=== PATIENT | female | born 1975 | race Caucasian/White ===

== ENCOUNTER 2020-05-06 11:39 | Outpatient (REF) | payer BC, SELFPAY | END 2020-05-06 11:40 | disposition home or self-care (01) | LOC: HO.WFDLDS 11:39 | PROVIDERS: Visit Provider Internal Medicine | DX: Z20.828 Contact with and (suspected) exposure to other viral communicable diseases (principal) | CPT/HCPCS: C9803; U0003 ==

== ENCOUNTER 2024-12-18 14:52 | Outpatient (REF) | payer BC, SELFPAY ==
--- OUTSIDE RECORDS SUMMARY | 2024-12-18 15:48 | XMS_ITS ---
Author Name [facility] Organization Unknown Care Team Organization Name Specialty Phone Email Start Date End [facility] 06/04/2021 06/04/2021
== END 2024-12-18 14:53 | disposition home or self-care (01) ==
LOC: HO.LAB 14:52
PROVIDERS: Visit Provider Otolaryngology
DX: T78.2XXA Anaphylactic shock, unspecified, initial encounter (principal)
CPT/HCPCS: 36415; 86003

== ENCOUNTER 2025-02-27 15:30 | Outpatient (AMB) | payer BC, SELFPAY ==
--- OUTSIDE RECORDS SUMMARY | 2025-02-27 18:24 | XMS_ITS | Clinical Summary ---
Author Organization [facility] Address [address] [place] [address] Phone Care Team Providers Care Soda Drier Feeder Name Role Phone Laura Rhoades MD Primary Care Provider [phone] Allergies No known active allergies Medications Tana, 28, 3-0.02 mg per tablet Take 1 tablet by mouth 1 (one) time each day. 5 Active ferrous sulfate 325 mg (65 mg elemental iron) tablet Take by mouth. Active semaglutide (Wegovy) 0.25 mg/0.5 mL injection penIndications: Overweight (BMI 25.0-29.9),Prim piotr hypertension,PC OS (polycystic ovarian syndrome) Inject 0.25 mg under the skin every 7 (seven) days. 4 Pen 5 Active lisinopriL (PRINIVIL,ZESTR IL) 5 mg tablet Take 1 tablet by mouth once daily 90 tablet 1 5 Active omeprazole OTC (PriLOSEC OTC) 20 mg EC tablet Take 1 tablet (20 mg total) by mouth 1 (one) time each day. Do not crush, chew, or split. 30 tablet 5 Active lisinopriL (PRINIVIL,ZESTR IL) 5 mg tablet Take 1 tablet by mouth once daily 90 tablet 5 02/02/20 25 Discontinued Active Problems Problem Noted Date Diagnosed Date HTN (hypertension) 06/14/2024 Abnormal CXR 04/18/2020 Uterine leiomyoma 10/31/2015 Renal cyst, left 10/30/2015 Abnormal mammogram 01/05/2013 Bifascicular block 01/03/2013 Dizziness 01/03/2013 Numbness and tingling of both legs 01/03/2013 PCOS (polycystic ovarian syndrome) 09/28/2010 Encounters Date Type Department Care Team Description 02/08/2025 11:00 AM EDT Office Visit Adult [address] [phone] Faye Mathias PA Gastroesophageal reflux disease without esophagitis (Primary Dx); Primary hypertension; Overweight (BMI 25.0-29.9) 01/23/2025 3:50 PM EDT - 01/23/2025 11:59 PM EDT Hospital Encounter Radiology Department - [address] [phone] Encounter for screening mammogram for breast cancer Discharge Disposition: Home or Self Care 01/22/2025 Telephone Adult [address] [phone] Laura Rhoades MD 01/10/2025 Telephone Adult [address] [phone] Laura Rhoades MD 01/03/2025 4:00 PM EDT Office Visit Adult [address] [phone] Faye Mathias PA Adult general medical examination (Primary Dx); Primary hypertension; Mixed hyperlipidemia; Screening for diabetes mellitus; Screening for thyroid disorder; Overweight (BMI 25.0-29.9); PCOS (polycystic ovarian syndrome) 12/13/2024 9:45 AM EDT Office Visit Adult [address] [phone] Ronda Gordon PA Facial rash (Primary Dx); Skin lesion; Screening for cervical cancer 12/12/2024 Telephone Adult [address] [phone] Kassandra Simon MA from Last 3 Months Immunizations Name Administration Dates Next Due Influenza Quadravalent, MDCK , 0.5ml, preservative free (Flucelvax) 6mo and older 05/14/2023,03/29/2022,03/03/2021,2019 Influenza trivalent, with preservative (Fluzone; Afluria) 6mo and older 03/19/2009 PPD Test 01/27/2001,01/24/2001 Td Tetanus diptheria (Tdvax) 7yo and older 03/03/2021 Tdap Tetanus diptheria acell ular pertussis (Boostrix; Adacel) 7yo and older 09/28/2010 Surgical History Surgery Date Site/Laterality Comments APPENDECTOMY PROCEDURE: HISTORICAL APPENDECTOMY; COMMENT: age 8 HAND SURGERY PROCEDURE: HISTORICAL HAND SURGERY; COMMENT: left thumb BELT ABDOMINOPLASTY PROCEDURE: HISTORICAL TUMMY TUCK; COMMENT: after twin OTHER SURGICAL HISTORY PROCEDURE: ---- OTHER ----; COMMENT: bladder stretching procedure for IC, doing well OTHER SURGICAL HISTORY 12/25/2019 PROCEDURE: MO UNLISTED HYSTEROSCOPY PROCEDURE UTERUS; COMMENT: w/ polypectomy for menorrhagia; Dr. Hampton ENDOMETRIAL ABLATION 08/12/2020 PROCEDURE: MO ENDOMETRIAL ABLTJ THERMAL W/O HYSTEROSCOPIC GUID; COMMENT: Dr. Hampton BREAST BIOPSY Left PROCEDURE: BX BREAST; PERC NEEDLE CORE W/IMAG GUID Medical History Medical History Date Comments Female infertility of unspec ified origin DX:Female infertility of uns pecified origin Other specified types of cystitis(595.89) DX:Other specified types of cystitis(595.89); COMMENT: interstitial Family history of cardiovasc ular disease 09/28/2010 DX:Family history of cardiov ascular disease PCOS (polycystic ovarian syndrome) 06/20/1998 DX:PCOS (polycystic ovarian syndrome) HTN (hypertension) DX:HTN (hyper tension) Family History Medical History Relation Name Comments Other: htn Father Lung cancer Paternal Grandmother smoker Other cancer Paternal Grandmother SKIN CA Other: htn Paternal Grandmother Relation Name Status Comments Brother Alive healthy Daughter Alive healthy Father Alive CAD/PTCA AGE 47 , GERD, HTN, CHOL, OBESE, Maternal Grandfather (Age 20s) c ancer-asbestos Maternal Grandmother Alive healthy Mother Alive BENIGN BREAST B X Paternal Grandfather (Age 77) pr ostate cancer Paternal Grandmother (Age 77) de mentia, skin cancer and lung cancer Sister Alive 1/2 sister Son 1 Alive healthy - twin Son 2 Alive healthy -twin Social History Tobacco Use Types Packs/Day Years Used Date Smoking Tobacco: Never Smokeless Tobacco: Never Tobacco Cessation:Counseling Given: Not Answered Alcohol Use Standard Drinks/Week Comments Yes 0 (1 standard drink = 0.6 oz pur e alcohol) Interpersonal Safety Answer Date Record ed Physical Abuse 06/08/2024 Verbal Abuse 06/08/2024 Comments No Sex and Gender Information Value Date Recorded Sex Assigned at Not on file Legal Sex Female 9:19 PM EST Gender Identity Not on file Sexual Orientation Not on file Obstetrics History Para Term AB IAB SAB Ectopic Multiple Livin g Live Births 3 3 3 3 Date Outcome GA Total Labor Labor/2nd/3rd Weight Sex Type Anes PTL Amy A1 A5 Name Clin Term Term Term Last Filed Vital Signs Vital Sign Reading Time Taken Comments Blood Pressure 132/82 02/08/2025 10:51 AM EDT Pulse 81 02/08/2025 10:51 AM EDT Temperature 36.6 C (97.8 F) 02/08/2025 10:51 AM EDT Respiratory Rate 16 02/08/2025 10:51 AM EDT Oxygen Saturation 99% 06/08/2024 9:13 AM EST Inhaled Oxygen Concentration - - Weight 67.6 kg (149 lb) 02/08/2025 10:51 AM EDT Height 157.5 cm (5' 2 ) 02/08/2025 10:51 AM EDT Body Mass Index 27.25 02/08/2025 10:51 AM EDT Plan of Treatment Health Maintenance Due Date Last Done Comments Hepatitis B Vaccines (1 of 3 - 19+ 3-dose series) 1992 HIV Screening 05/29/2022 Social Influencers of Health Screening 05/29/2022 Pneumococcal Vaccine: 50+ Years (1 of 1 - PCV) 09/09/2023 Zoster Vaccines (1 of 2) 09/09/2023 Depression Screening 06/20/2024 COVID-19 Vaccine ( - 2024- season) 2025 06/15/2021, 08/01/2020, 07/02/2020 Influenza Vaccine (#1) 2025 3, 03/29/2022, 03/03/2021, Additional history exists Hypertension/CHF/CAD Annual BMP Blood Test 01/04/2026 01/04/2025, 01/03/2024, 01/03/2024 Breast Cancer Screening 01/23/2027 01/24/20, 01/21/2024, 01/21/2024, Additional history exists Cervical Cancer Screening: HPV 12/31/2027 12/30/2022 Cholesterol Screening (Lipid Panel) 01/02/2029 01/03/2024, 01/03/2024 DTaP,Tdap,and Td Vaccines (3 - Td or Tdap) 03/03/2031 03/03/2021, 09/28/2010 Colorectal Cancer Screening: Colonoscopy 06/08/2034 06/08/2024 Hepatitis C Screening Completed 01/03/2024 HIB Vaccines Aged Out No longer eligi ble based on patient's age to complete this topic HPV Vaccines Aged Out No longer eligi ble based on patient's age to complete this topic Hepatitis A Vaccines Aged Out No long er eligible based on patient's age to complete this topic IPV Vaccines Aged Out No longer eligi ble based on patient's age to complete this topic MMR Vaccines Aged Out No longer eligi ble based on patient's age to complete this topic Meningococcal ACWY Vaccine Aged Out N o longer eligible based on patient's age to complete this topic Meningococcal B Vaccine Aged Out No l onger eligible based on patient's age to complete this topic RSV Immunization Patients Under 20 months Aged Out No longer eligible based on patient's age to complete this topic Varicella Vaccines Aged Out No longer eligible based on patient's age to complete this topic Procedures Procedure Name Priority Date/Time Associated Diagnosis Comments MG MAMMO DIGITAL SCREENING W BRYSON BILAT Routine 01/23/2025 4:07 PM EDT Encounter for screening mammogram for breast cancer CBC WITH AUTO DIFFERENTIAL Routine 01/04/2025 10:43 AM EDT Adult general medical examination Primary hypertension Mixed hyperlipidemia Screening for diabetes mellitus Screening for thyroid disorder HEMOGLOBIN A1C Routine 01/04/2025 10:43 AM EDT Adult general medical examination Primary hypertension Mixed hyperlipidemia Screening for diabetes mellitus Screening for thyroid disorder CBC AND DIFFERENTIAL Routine 01/04/2025 10:43 AM EDT Adult general medical examination Primary hypertension Mixed hyperlipidemia Screening for diabetes mellitus Screening for thyroid disorder COMPREHENSIVE METABOLIC PANEL Routine 01/04/2025 10:43 AM EDT Adult general medical examination Primary hypertension Mixed hyperlipidemia Screening for diabetes mellitus Screening for thyroid disorder THYROID STIMULATING HORMONE WITH REFLEX TO FREE T4 AND FREE T3 Routine 01/04/2025 10:43 AM EDT Adult general medical examination Primary hypertension Mixed hyperlipidemia Screening for diabetes mellitus Screening for thyroid disorder VITAMIN D 25 HYDROXY Routine 01/04/2025 10:43 AM EDT Adult general medical examination Primary hypertension Mixed hyperlipidemia Screening for diabetes mellitus Screening for thyroid disorder VITAMIN B12 Routine 01/04/2025 10:43 AM EDT Adult general medical examination Primary hypertension Mixed hyperlipidemia Screening for diabetes mellitus Screening for thyroid disorder MAGNESIUM Routine 01/04/2025 10:43 AM EDT Adult general medical examination Primary hypertension Mixed hyperlipidemia Screening for diabetes mellitus Screening for thyroid disorder COLONOSCOPY Routine 06/08/2024 8:52 AM EST Encounter for screening for malignant neoplasm of colon HM HEPATITIS C SCREENING Routine 01/03/2024 LIPID PANEL Routine 01/03/2024 HM HPV Routine 12/30/2022 from Last 3 Months or Most Recently Relevant to Health Maintenance Results * MG Mammo Digital Screening w Bryson bilat (01/23/2025 4:07 PM EDT) Anatomical Region Laterality Modality Breast Bilateral Mammography 01/24/2025 6:36 PM EDT Impressions 01/24/2025 6:38 PM EDT No mammographic evidence of malignancy. BREAST DENSITY: C - The breasts are heterogeneously dense which may obscure small masses. BI-RADS CATEGORY: 1 - NEGATIVE RECOMMENDATION: Screening bilateral mammogram is recommended in 1 year. MAMMO LOCATION: [facility], [address] [place] [address], [id number], . -------- FINAL REPORT -------- Dictated By: Tanna Valdez Dictated Date: 01/24/2025 18:36 ET Assigned Physician: Tanna Valdez Reviewed and Electronically Signed By: Tanna Valdez Signed Date: 01/24/2025 18:38 ET Workstation ID: [id number] Transcribed By: Self Edit Transcribed Date: 01/24/2025 18:36 ET Narrative 01/24/2025 6:38 PM EDT EXAM: Screening Mammogram CLINICAL: 49 years old, Female, routine annual exam. COMPARISON: 01/21/2024 and as far back as 10/17/2020 TECHNIQUE: Bilateral MLO and CC views were obtained digitally with 3-D mammogram (digital breast tomosynthesis). Computer-aided detection was utilized in evaluation of this exam (CAD). FINDINGS: No new suspicious mass, architectural distortion, or suspicious calcifications. Procedure Note Tanna Valdez MD - 01/24/2025 EXAM: Screening Mammogram CLINICAL: 49 years old, Female, routine annual exam. COMPARISON: 01/21/2024 and as far back as 10/17/2020 TECHNIQUE: Bilateral MLO and CC views were obtained digitally with 3-Dmammogram (digital breast tomosynthesis). Computer-aided detection wasutilized in evaluation of this exam (CAD). FINDINGS: No new suspicious mass, architectural distortion, or suspiciouscalcifications. IMPRESSION: No mammographic evidence of malignancy. BREAST DENSITY: C - The breasts are heterogeneously dense which mayobscure small masses. BI-RADS CATEGORY: 1 - NEGATIVE RECOMMENDATION: Screening bilateral mammogram is recommended in 1 year. MAMMO LOCATION: [facility], [address] [place] [address], [id number], . -------- FINAL REPORT -------- Dictated By: Tanna Valdez Dictated Date: 01/24/2025 18:36 ET Assigned Physician: Tanna Valdez Reviewed and Electronically Signed By: Tanna Valdez Signed Date: 01/24/2025 18:38 ET Workstation ID: [id number] Transcribed By: Self Edit Transcribed Date: 01/24/2025 18:36 ET us Laura Rhoades MD IMG BI PROCEDURES Final Result * Thyroid stimulating hormone with reflex to free t4 and free t3 (01/04/2025 10:43 AM EDT) Pathologist [facility] TSH 0.73 0.40 - 4.00 mcIU/mL LAB CHEMISTRY METHOD 01/04/2025 4:57 PM EDT [facility] Blood Venous blood specimen / Unknown Venipuncture / Unknown 01/04/2025 10:43 AM EDT 01/04/2025 10:43 AM EDT Faye SIMPSON LAB BLOOD ORDERABLES Fin al Result [facility] [address] [place] [address], * (ABNORMAL) CBC auto differential (01/04/2025 10:43 AM EDT) [facility] WBC 7.9 4.8 - 10.8 K/mcL LAB HEMETOLOGY METHOD 01/04/2025 12:17 PM EDT [facility] RBC 4.20 3.80 - 4.80 M/mcL LAB HEMETOLOGY METHOD 01/04/2025 12:17 PM EDT [facility] Hemoglobin 13.6 11.5 - 16.0 g/dL LAB HEMETOLOGY METHOD 01/04/2025 12:17 PM EDT [facility] Hematocrit 40.3 35.0 - 47.0 % LAB HEMETOLOGY METHOD 01/04/2025 12:17 PM EDT [facility] MCV 96.0 79.0 - 98.0 FL LAB HEMETOLOGY METHOD 01/04/2025 12:17 PM [facility] MCH 32.4(H) 27.0 - 32.0 pcg LAB HEMETOLOGY METHOD 01/04/2025 12:17 PM [facility] MCHC 33.7 32.0 - 37.0 g/dL LAB HEMETOLOGY METHOD 01/04/2025 12:17 PM [facility] RDW 12.6 11.0 - 15.0 % LAB HEMETOLOGY METHOD 01/04/2025 12:17 PM [facility] Platelets 234 130 - 400 K/mcL LAB HEMETOLOGY METHOD 01/04/2025 12:17 PM [facility] MPV 10.2 7.0 - 11.0 OR LAB HEMETOLOGY METHOD 01/04/2025 12:17 PM [facility] NRBC 0.0 <1.0 % LAB HEMETOLOGY METHOD 01/04/2025 12:17 PM [facility] NRBC Absolute 0.00 <0.10 K/mcL LAB HEMETOLOGY METHOD 01/04/2025 12:17 PM [facility] Neutrophils Relative 65.8 % LAB HEMETOLOGY METHOD 01/04/2025 12:17 PM [facility] Lymphocytes Relative 25.5 % LAB HEMETOLOGY METHOD 01/04/2025 12:17 PM [facility] Monocytes Relative 7.1 % LAB HEMETOLOGY METHOD 01/04/2025 12:17 PM [facility] Eosinophils Relative 0.8 % LAB HEMETOLOGY METHOD 01/04/2025 12:17 PM [facility] Basophils Relative 0.4 % LAB HEMETOLOGY METHOD 01/04/2025 12:17 PM [facility] Immature Granulocytes Relative 0.4 % LAB HEMETOLOGY METHOD 01/04/2025 12:17 PM EDT [facility] Neutrophils Absolute 5.23 1.50 - 7.00 K/mcL LAB HEMETOLOGY METHOD 01/04/2025 12:17 PM EDT [facility] Lymphocytes Absolute 2.02 1.00 - 5.00 K/mcL LAB HEMETOLOGY METHOD 01/04/2025 12:17 PM EDT [facility] Monocytes Absolute 0.56 0.20 - 1.00 K/mcL LAB HEMETOLOGY METHOD 01/04/2025 12:17 PM EDT [facility] Eosinophils Absolute 0.06 0.00 - 0.50 K/[facility] LAB HEMETOLOGY METHOD 01/04/2025 12:17 PM EDT [facility] Basophils Absolute 0.03 0.00 - 0.20 K/mcL LAB HEMETOLOGY METHOD 01/04/2025 12:17 PM EDT [facility] Immature Granulocytes Absolute 0.03 0.00 - 0.03 K/mcL LAB HEMETOLOGY METHOD 01/04/2025 12:17 PM EDT [facility] Blood Venous blood specimen / Unknown Venipuncture / Unknown 01/04/2025 10:43 AM EDT 01/04/2025 10:43 AM EDT Faye SIMPSON LAB BLOOD ORDERABLES Fin al Result [facility] [address] [place] [address], * Vitamin D 25 hydroxy (01/04/2025 10:43 AM EDT) [facility] Vit D, 25-Hydroxy 34.0 30.0 - 80.0 ng/mL LAB CHEMISTRY METHOD 01/04/2025 4:56 PM EDT [facility] Blood Venous blood specimen / Unknown Venipuncture / Unknown 01/04/2025 10:43 AM EDT 01/04/2025 10:43 AM EDT Faye Obando Bamame SIMPSON LAB BLOOD ORDERABLES Fin al Result [facility] [address] [place] [address], * Magnesium (01/04/2025 10:43 AM EDT) [facility] Magnesium 2.1 1.9 - 2.6 mg/dL LAB CHEMISTRY METHOD 01/04/2025 3:18 PM EDT [facility] Blood Venous blood specimen / Unknown Venipuncture / Unknown 01/04/2025 10:43 AM EDT 01/04/2025 10:43 AM EDT Faye Obando Natan SIMPSON LAB BLOOD ORDERABLES Fin al Result Performing Organization Address [facility]/ZIP Co de Phone Number [facility] [address] [place] [address], * Hemoglobin A1c (01/04/2025 10:43 AM EDT) [facility] Hemoglobin A1C 5.1 <6.5 % LAB CHEMISTRY METHOD 01/04/2025 10:51 PM EDT [facility] Mean Bld Glu Estim. 100 mg/dL LAB CHEMISTRY METHOD 01/04/2025 10:51 PM EDT [facility] Blood Venous blood specimen / Unknown Venipuncture / Unknown 01/04/2025 10:43 AM EDT 01/04/2025 10:43 AM EDT Faye Obando Bamame Mathias PA LAB BLOOD ORDERABLES Fin al Result Performing Organization Address City/[facility]/ZIP Co de Phone Number [facility] [address] [place] [address], [place] [phone] * Vitamin B12 (01/04/2025 10:43 AM EDT) [facility] Vitamin B-12 413 250 - 900 pcg/mL LAB CHEMISTRY METHOD 01/04/2025 3:55 PM EDT [facility] Blood Venous blood specimen / Unknown Venipuncture / Unknown 01/04/2025 10:43 AM EDT 01/04/2025 10:43 AM EDT us Faye SIMPSON LAB BLOOD ORDERABLES Fin al Result [facility] [address] [place] [address], [place] [phone] * Comprehensive metabolic panel (01/04/2025 10:43 AM EDT) [facility] Sodium 137 133 - 145 mmol/L LAB CHEMISTRY METHOD [facility]25 [facility] Potassium 4.2 3.5 - 5.5 mmol/L LAB CHEMISTRY METHOD 01/04/2025 3:55 PM [facility] Chloride 105 96 - 110 mmol/L LAB CHEMISTRY METHOD 01/04/2025 3:55 PM [facility] CO2 25 21 - 32 mmol/L LAB CHEMISTRY METHOD 01/04/2025 3:55 PM [facility] Anion Gap 7 3 - 11 LAB CHEMISTRY METHOD 01/04/2025 3:55 PM [facility] Glucose 85 70 - 100 mg/dL LAB CHEMISTRY METHOD 01/04/2025 3:55 PM [facility] BUN 11 5 - 25 mg/dL LAB CHEMISTRY METHOD 01/04/2025 3:55 PM [facility] Creatinine 0.78 0.50 - 1.10 mg/dL LAB CHEMISTRY METHOD 01/04/2025 3:55 PM EDT [facility] eGFR 92 >=60 mL/min/1. 73m2 LAB CHEMISTRY METHOD 01/04/2025 3:55 PM T [facility] Comment:Calculation based on the Chronic Kidney Disease Epidemiology Collaboration (CKD-EPI) equation refit without adjustment for race. BUN/Creatinine Ratio 14.1 LAB CHEMISTRY METHOD 01/04/2025 3:55 PM T [facility] Calcium 8.9 8.5 - 10.5 mg/dL LAB CHEMISTRY METHOD 01/04/2025 3:55 PM [facility] AST (SGOT) 14 10 - 42 unit/L LAB CHEMISTRY METHOD 01/04/2025 3:55 PM [facility] ALT (SGPT) 20 10 - 60 unit/L LAB CHEMISTRY METHOD 01/04/2025 3:55 PM [facility] Alkaline Phosphatase 52 42 - 121 unit/L LAB CHEMISTRY METHOD 01/04/2025 3:55 PM T [facility] Total Protein 6.5 6.0 - 8.0 g/dL LAB CHEMISTRY METHOD 01/04/2025 3:55 PM T [facility] Albumin 3.6 3.2 - 5.0 g/dL LAB CHEMISTRY METHOD 01/04/2025 3:55 PM [facility] Total Bilirubin 0.6 0.0 - 1.4 mg/dL LAB CHEMISTRY METHOD 01/04/2025 3:55 PM T [facility] Blood Venous blood specimen / Unknown Venipuncture / Unknown 01/04/2025 10:43 AM EDT 01/04/2025 10:43 AM EDT Faye SIMPSON LAB BLOOD ORDERABLES Fin al Result [facility] [address] [place] [address], * COLONOSCOPY Anesthesia - MAC; [facility] ENDOSCOPY (06/08/2024 8:52 AM EST) Anatomical Region Laterality Modality Endoscopy 06/08/2024 8:17 AM EST Impressions 06/08/2024 8:53 AM EST - Hemorrhoids found on perianal exam. - One 5 mm polyp in the transverse colon, removed with a cold snare. Resected and retrieved. - The examination was otherwise normal on direct and retroflexion views. Recommendation: - - Discharge patient to home. - High fiber diet. - Continue present medications. - Await pathology results. - Repeat colonoscopy for surveillance based on pathology results. Narrative 06/08/2024 8:53 AM EST [facility] GI Patient Name: Ruth Soriano Procedure Date: 06/08/2024 8:17 AM Date of : 1975 Age: 48 Gender: Female Note Status: Finalized Attending MD: Ashley Samuels DO, [id number] Procedure Date No Time: 06/08/2024 Procedure: Colonoscopy Indications: Screening for colorectal malignant neoplasm Providers: Ashley Samuels DO Referring MD: Cricket Groves MD Medicines: Monitored Anesthesia Care Complications: No immediate complications. Estimated blood loss: Minimal. Estimated Blood Loss: Estimated blood loss was minimal. Procedure: Pre-Anesthesia Assessment: - - Prior to the procedure, a History and Physical was performed, and patient medications and allergies were reviewed. The patient is competent. The risks and benefits of the procedure and the sedation options and risks were discussed with the patient. All questions were answered and informed consent was obtained. Patient identification and proposed procedure were verified by the physician, the nurse, the anesthesiologist, the assembler tester and the lab animal technician in the pre-procedure area in the endoscopy suite. Mental Status Examination: alert and oriented. Airway Examination: normal oropharyngeal airway and neck mobility. Respiratory Examination: clear to auscultation. CV Examination: normal. Prophylactic Antibiotics: The patient does not require prophylactic antibiotics. Prior Anticoagulants: The patient has taken no anticoagulant or antiplatelet agents. ASA Grade Assessment: II - A patient with severe systemic disease. After reviewing the risks and benefits, the patient was deemed in satisfactory condition to undergo the procedure. The anesthesia plan was to use monitored anesthesia care (MAC). Immediately prior to administration of medications, the patient was re-assessed for adequacy to receive sedatives. The heart rate, respiratory rate, oxygen saturations, blood pressure, adequacy of pulmonary ventilation, and response to care were monitored throughout the procedure. The physical status of the patient was re-assessed after the procedure. After I obtained informed consent, the scope was passed under direct vision. Throughout the procedure, the patient's blood pressure, pulse, and oxygen saturations were monitored continuously.The Colonoscope was introduced through the anus and advanced to the cecum, identified by appendiceal orifice and ileocecal valve. The colonoscopy was performed without difficulty. The patient tolerated the procedure well. The quality of the bowel preparation was good. Findings: Hemorrhoids were found on perianal exam. A 5 mm polyp was found in the transverse colon. The polyp was sessile. The polyp was removed with a cold snare. Resection and retrieval were complete. Estimated blood loss was minimal. The exam was otherwise without abnormality on direct and retroflexion views. Procedure Code(s): --- Professional --- 17221, Colonoscopy, flexible; with removal of tumor(s), polyp(s), or other lesion(s) by snare technique Diagnosis Code(s): --- Professional --- Z12.11, Encounter for screening for malignant neoplasm of colon D12.3, Benign neoplasm of transverse colon (hepatic flexure or splenic flexure) K64.9, Unspecified hemorrhoids CPT copyright 2020 [employer]. All rights reserved. The codes documented in this report are preliminary and upon recruiter coordinator review may be revised to meet current compliance requirements. ASHLEY Samuels DO 06/08/2024 8:52:59 AM This report has been signed electronically.Ashley Samuels DO Number of Addenda: 0 Note Initiated On: 06/08/2024 8:17 AM Scope Withdrawal Time: 0 hours 8 minutes 16 seconds Scope In: 8:41:26 AM Scope Out: 8:51:32 AM [facility] [facility] - [address] [place] [id number] Procedure Note Ashley Samuels DO - 06/08/2024 [facility] GI Patient Name: Ruth Soriaon Procedure Date: 06/08/2024 8:17 AM Date of : 1975 Age: 48 Gender: Female Note Status: Finalized Attending MD: Ashley Samuels DO, [id number] Procedure Date No Time: 06/08/2024 Procedure: Colonoscopy Indications: Screening for colorectal malignant neoplasm Providers: Ashley Samuels DO Referring MD: Cricket Groves MD Medicines: Monitored Anesthesia Care Complications: No immediate complications. Estimated blood loss: Minimal. Estimated Blood Loss: Estimated blood loss was minimal. Procedure: Pre-Anesthesia Assessment: - - Prior to the procedure, a History and Physicalwas performed, and patient medications and allergieswere reviewed. The patient is competent. The risks and benefits of the procedure and the sedation optionsand risks were discussed with the patient. Allquestions were answered and informed consent was obtained. Patient identification and proposed procedure were verified by the physician, the nurse, the anesthesiologist, the assembler tester and thetechnician in the pre-procedure area in the endoscopy suite. Mental Status Examination: alert and oriented.Airway Examination: normal oropharyngeal airway and neck mobility. Respiratory Examination: clear to auscultation. CV Examination: normal. Prophylactic Antibiotics: The patient does not requireprophylactic antibiotics. Prior Anticoagulants: The patient has taken no anticoagulant or antiplatelet agents. ASA Grade Assessment: II - A patient with severesystemic disease. After reviewing the risks and benefits,the patient was deemed in satisfactory condition to undergo the procedure. The anesthesia plan was touse monitored anesthesia care (MAC). Immediately priorto administration of medications, the patient was re-assessed for adequacy to receive sedatives. The heart rate, respiratory rate, oxygen saturations, blood pressure, adequacy of pulmonary ventilation,and response to care were monitored throughout the procedure. The physical status of the patient was re-assessed after the procedure. After I obtained informed consent, the scope was passed under direct vision. Throughout theprocedure, the patient's blood pressure, pulse, and oxygen saturations were monitored continuously.The Colonoscope was introduced through the anus and advanced to the cecum, identified by appendiceal orifice and ileocecal valve. The colonoscopy was performed without difficulty. The patient tolerated the procedure well. The quality of the bowel preparation was good. Findings: Hemorrhoids were found on perianal exam. A 5 mm polyp was found in the transverse colon. The polyp was sessile. The polyp was removed with acold snare. Resection and retrieval were complete. Estimated blood loss was minimal. The exam was otherwise without abnormality ondirect and retroflexion views. Procedure Code(s): --- Professional --- 17344, Colonoscopy, flexible; with removal of tumor(s), polyp(s), or other lesion(s) by snare technique Diagnosis Code(s): --- Professional --- Z12.11, Encounter for screening for malignantneoplasm of colon D12.3, Benign neoplasm of transverse colon (hepatic flexure or splenic flexure) K64.9, Unspecified hemorrhoids CPT copyright 2020 [employer]. All rights reserved. The codes documented in this report are preliminary and upon recruiter coordinator reviewmay be revised to meet current compliance requirements. ASHLEY Samuels DO 06/08/2024 8:52:59 AM This report has been signed electronically.Ashley Samuels DO Number of Addenda: 0 Note Initiated On: 06/08/2024 8:17 AM Scope Withdrawal Time: 0 hours 8 minutes 16 seconds Scope In: 8:41:26 AM Scope Out: 8:51:32 AM Endoscopy Department at [facility] - [address] [place] [phone] IMPRESSION: - Hemorrhoids found on perianal exam. - One 5 mm polyp in the transverse colon, removedwith a cold snare. Resected and retrieved. - The examination was otherwise normal on directand retroflexion views. Recommendation: - - Discharge patient to home. - High fiber diet. - Continue present medications. - Await pathology results. - Repeat colonoscopy for surveillance based on pathology results. Ashley Samuels DO GI~PROCEDURE ORDERABLES Final Re sult * Hepatitis C Screening (01/03/2024) Hepatitis C Screening abstracted Historical Provider HEALTH MAINTENANCE Final Result * (ABNORMAL) Lipid panel (01/03/2024) LDL/HDL Ratio 3 0 - 4 Triglycerides 136 0 - 150 mg/dL Cholesterol 224(A) 0 - 200 mg/dL HDL 77 >=40 mg/dL LDL Cholesterol 120(A) 0 - 100 mg/dL Blood Venous blood specimen / Unknown Historical Provider MD LAB BLOOD ORDERABLES Dania l Result * Cervical Cancer Screening: HPV (12/30/2022) Cervical Cancer Screening: HPV no interpretation , abstracted us Historical Provider HEALTH MAINTENANCE Final Result from Last 3 Months or Most Recently Relevant to Health Maintenance Insurance [facility] Care Teams S[employer] 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
== END 2025-02-27 15:33 | disposition home or self-care (01) ==
LOC: HO.HMGAL 15:30
PROVIDERS: Visit Provider Registered Nurse Emergency
DX: J30.89 Other allergic rhinitis (principal)
CPT/HCPCS: 95117; 95165

== ENCOUNTER 2025-04-10 11:36 | Outpatient (AMB) | payer BC, SELFPAY | END 2025-04-10 11:37 | disposition home or self-care (01) | LOC: HO.HMGAL 11:36 | PROVIDERS: PCP Internal Medicine; Visit Provider Registered Nurse Emergency | DX: J30.89 Other allergic rhinitis (principal) | CPT/HCPCS: 95117; 95165 ==

== ENCOUNTER 2025-05-15 13:21 | Outpatient (AMB) | payer BC, SELFPAY | END 2025-05-15 13:21 | disposition home or self-care (01) | LOC: HO.HMGAL 13:21 | PROVIDERS: PCP Internal Medicine; Visit Provider Registered Nurse Emergency | DX: J30.89 Other allergic rhinitis (principal) | CPT/HCPCS: 95117; 95165 ==